=== PATIENT | male | born 1965 | race Caucasian/White ===

== ENCOUNTER 2016-09-11 16:00 | Emergency (ER) | payer OTHER ==
[~2016-09-11] VITALS: Ht 175.3 cm; Wt 82.3 kg
[~2016-09-11 16:00] MED LIST: AMOX-366 PO; IBUP800T28 PO
[2016-09-11 16:13] VITALS: BP 135/92; PULSE 82; RESP 16; O2SAT 99
--- NOTE | 2016-09-11 16:23 | ED.REPORT ---
HPI-Extremity Problem Upper Date of Service Sep 11, 2016 ED Provider: Slava Downs MD The patient is an otherwise healthy 50 year old male who presents to the emergency department complaining of a laceration to his left hand that occurred at work today at 1545. He cut his hand on a sheet of tin insulation. He cleaned the wound after it happened and wrapped it in a bandage. He denies any other injuries or trauma. His tetanus is not up to date. Nursing Notes Stated Complaint: CUT LEFT HAND AT WORK Chief Complaint: Laceration Nursing Notes Reviewed: Yes Allergies: Coded Allergies: No Known Allergies (Unverified , 09/11/16) No Active Prescriptions or Reported Meds General Time Seen by MD: 16:21 Chief Complaint Hand Injury left Hx Obtained From: Patient Arrived By: Walk-in Onset Occurred: 1 - 4 hours ago Symptom Duration: Since onset Context: Occurred at: Workplace Location: : Hand left Quality: Painful Severity: Current: Mild Severity: Maximum: Moderate Pertinent Negative: Pt denies other symptoms Recent Healthcare: No recent doctor visit, No recent hospitalization Similar Sx Previous: No Past Medical History Past Medical History none reported Past Surgical History none reported Family History Noncontributory Smoking History Current Every Day Smoker Social History Alcohol Use: 1-3 per day Drug Use: Denies drug use Other Social History: Local resident Ambulatory Status Independent Review of Systems Review of Systems Note: +laceration Musculoskeletal: Reports: Extremity pain Complete sys rev & neg: except as marked. Physical Exam Initial Vital Signs Vital Signs (First) Date Time Temp Pulse Resp B/P Pulse Ox O2 Delivery O2 Flow Rate FiO2 09/11/16 16:13 36.5 82 16 135/92 99 Room Air Initial VS: Reviewed Head / Eyes: Atraumatic, Normocephalic, PERRL ENT: Mucous membranes moist, Conjunctiva normal, No scleral icterus Neck: Supple, Non-tender, Full range of motion Respiratory: Breath sounds normal, Clear to auscultation, No respiratory distress Cardiovascular: Regular rate & rhythm, Heart sounds normal, Intact distal pulses Abdomen / GI: Soft, Non-tender, No guarding, No rebound, No distention Lymphatic: No lymphadenopathy Lower Extremities: Vascular intact, Neuro intact, No swelling, No tenderness Skin: Warm, Dry, No cyanosis Neurologic: Alert, Oriented, Nonfocal Psychiatric: Mood/affect normal, Behavior normal, Normal thought content General/Constitutional: Awake, Alert, Cooperative Wrist / Hand: Neurologic intact, Vascular intact There is a laceration measuring about 1 cm that is located about the left thenar eminence. It extends just down to the subcutaneous tissue. He is neurovascular intact. No FB present. No exposed ligamentous structures. Re-Eval/Medical Decision Med Decision/Clinical Course The patient is an otherwise healthy 50 year old male who presents to the emergency department complaining of a laceration to his left hand that occurred at work today at 1545. He cut his hand on a sheet of tin insulation. He cleaned the wound after it happened and wrapped it in a bandage. He denies any other injuries or trauma. His tetanus is not up to date. Patient afebrile stable vital signs and examination as above. No evidence of neurovascular injury. No evidence of foreign body. Tetanus status was updated. Wound was copiously irrigated and repaired with Steri-Strips. Procedure was tolerated well. Follow-up and return precautions were reviewed in detail and the patient verbalized understanding and agreement with the plan. Source of Hx: Old records Re-Evaluation/Progress : Time of Eval: 17:25 Re-Evaluation/Progress Note: Discussed plan to wash out wound, apply dressing, and discharge. Counseled Regarding: Diagnosis, Need for follow-up, When/why to return to ED Discharge & Departure Impression: Primary Impression: Laceration Additional Impression: Hand pain Laterality: unspecified laterality Qualified Code: M79.643 - Pain in unspecified hand Disposition: Home Discharge Condition All VS Reviewed: Yes Condition: Stable Patient Instructions: Laceration (ED) Additional Instructions: Thank you for seeking care at the emergency room. Our primary goal today in the ED was to evaluate you for any life-threatening conditions. Your evaluation was reassuring. You were given a tetanus update in the ED today. Take ibuprofen as needed for pain. Make sure to keep the area clean and dry. You should return to the ED immediately if you develop increased pain, redness or swelling, fevers, vomiting, or any other concerning signs or symptoms. Thank you for letting us partake in your care today. Referrals: [facility] (PCP) Scribe Attestation Portions of this note were transcribed by Lexii Gutierrez. I, Dr. Downs personally performed the history, physical exam and medical decision-making; I reviewed and confirmed the accuracy of the information in the transcribed note. Signed by: Idania Cummins, 09/11/2016 and 1730. Slava Downs MD Sep 11, 2016 16:23 Lexii Gutierrez Sep 11, 2016 16:26
[2016-09-11] MEDS ORDERED: TdaP Vaccine 0.5 mL Inj IM ONE (16:25)
[2016-09-11 18:00] VITALS: BP 135/90; PULSE 80; O2SAT 99
== END 2016-09-11 17:59 | disposition home or self-care (01) ==
LOC: SED 16:00
DX: S61.412A Laceration without foreign body of left hand, initial encounter (principal); W26.8XXA Contact with other sharp object(s), not elsewhere classified, initial encounter; Y92.59 Other trade areas as the place of occurrence of the external cause; Y93.89 Activity, other specified; Y99.0 Civilian activity done for income or pay; M79.642 Pain in left hand; F17.200 Nicotine dependence, unspecified, uncomplicated